=== PATIENT | female | born 1965 | race Caucasian/White ===

== ENCOUNTER 2020-05-02 09:43 | Inpatient (IN) | payer BC ==
[2020-05-02] MEDS ORDERED: Acetaminophen 650 MG Supp RECTAL PRN (12:31)
[2020-05-02] MEDS ORDERED: traZODone 50 MG Tab PO PRN (12:33)
--- NOTE | 2020-05-02 13:57 | CR ---
CHEST: 2 view CLINICAL HISTORY:Ascites COMPARISON:None FINDINGS: The heart size, pulmonary vascularity and hilar structures are normal. No infiltrate effusion or pneumothorax is seen. IMPRESSION: No acute cardiopulmonary process.
[2020-05-02] MEDS ORDERED: Potassium Chloride 20 MEQ, Lidocaine 1% 2 ML in Sodium Chloride 0.9% 100 ML IV SCH (14:00)
[2020-05-02] MEDS: Dextrose 5%-Lactated Ringers 1,000 ML IV SCH (14:01)
[2020-05-02] MEDS ORDERED: Potassium Phosphates 3 mMole/ML 5 ML SDV IV ONE (16:00)
[2020-05-02] MEDS: Pantoprazole 40 MG Vial IVPUSH SCH (16:24)
[2020-05-02] MEDS: Potassium Phos in 0.9 % NaCl 15 MMOL in Premix Bag 1 BAG IV SCH ×6 (16:26→23:06)
[2020-05-02] MEDS: Vancomycin 250 MG/5 ML ML Oral Solution PO SCH ×2 (17:38→23:06)
[2020-05-02] MEDS ORDERED: MVI, Adult with Vitamin K 10 ML, Thiamine 200 MG, Chromium/Copper/Mang/Selen/Zn 1 ML in... IV ONE ×4 (20:00)
[2020-05-03] MEDS: Potassium Phos in 0.9 % NaCl 15 MMOL in Premix Bag 1 BAG IV SCH ×2 (02:15)
[2020-05-03] MEDS: Dextrose 5%-Lactated Ringers 1,000 ML IV SCH (05:04)
[2020-05-03] MEDS: Vancomycin 250 MG/5 ML ML Oral Solution PO SCH ×4 (05:08→22:02)
[2020-05-03] MEDS ORDERED: Bupivacaine 0.5% 50 ML MDV ONE (06:40)
[2020-05-03] MEDS ORDERED: Lidocaine 1% with EPINEPHrine 1:100,000 50 ML MDV ONE (06:41)
[2020-05-03] MEDS ORDERED: Propofol 200 MG/20 ML SDV ONE (07:10)
[2020-05-03] MEDS ORDERED: Midazolam 1 MG/ML 2 ML SDV ONE (07:10)
[2020-05-03] MEDS ORDERED: fentaNYL 100 MCG/2 ML SDV ONE (07:10)
[2020-05-03] MEDS: DULoxetine 30 MG Cap PO SCH (09:46)
[2020-05-03] MEDS: Anastrozole 1 MG Tab PO SCH (09:46)
[2020-05-03] MEDS: 1: AA 5%/Calcium/D15W/Lytes 1,000 ML with MVI, Adult with Vitamin K 10 ML, Chromium/Copp IV SCH ×6 (11:01→22:02)
[2020-05-03] MEDS: Acetaminophen 325 MG Tab PO PRN ×2 (12:15→19:31)
[2020-05-03] MEDS: Amylase/Lipase/Protease 12,000 Unit Cap.CR PO SCH ×2 (13:40→17:41)
--- NOTE | 2020-05-03 13:44 | PN ---
DATE OF SERVICE: 05/03/2020 SUBJECTIVE: Nataliia did test positive for C diff. She was started on vancomycin 200 mg q.i.d. scheduled. Vital signs have been stable. Her potassium and phosphorus have been replaced. Oral intake was 1200 before she was n.p.o. and urine output 1200. She had 2 bowel movements. REVIEW OF SYSTEMS: Remainder of review of systems negative for any pertinent positives and negatives. OBJECTIVE: GENERAL: Nataliia is a pleasant 54-year-old female. She is alert and orientated. Color pale. VITAL SIGNS: TPR at 0800; 97.7, 71, and 14. Blood pressure is 105/66. HEENT: Negative. NECK: Supple. HEART: Regular rate and rhythm. LUNGS: Clear. ABDOMEN: Remains to have generalized tenderness. EXTREMITIES: Without peripheral edema. ASSESSMENTS: 1. Clostridium difficile. 2. Severe hepatic steatosis. 3. Tmzufgyz-qv-voporz colitis. 4. Moderate ascites. PLAN: Orders to be written post surgical procedure. Melania Jones PA-C /[id number]
--- NOTE | 2020-05-03 15:11 | HP ---
SUBJECTIVE: Nataliia reports generalized abdominal pain with 15 to 20 explosive, occasionally incontinent, water stools with some digested food. Diarrhea is associated with nausea, dry heaves and a 20-pound weight loss. She states this all started in December. She has lost 20 pounds. She did cut out bread, alcohol, and did some food elimination trials, nothing was helping. She also has been prescribed probiotics, Questran and fiber wafers. She went to her provider in February, had negative stool samples, tested negative for celiac disease, and had a colonoscopy. She states that she comes to the bariatric surgery department thinking that maybe all this has to do with her bariatric surgery. She states she is feeling weak, has no energy, and she has only been able to have a couple sips of water or a couple of spoons of soup, and she will have lot of diarrhea associated with cramping. Lap Kinjal-en-Y was on 06/29/2010, consult weight 231, preop weight 233, and weight today is 166. Date of revision of Kinjal-en-Y, 11/04/2016, consult weight 227.8, and weight today is 166. REVIEW OF SYSTEMS: CONSTITUTIONAL: Denies any fever, chills, or night sweats. SKIN: No rashes. HEENT: No headaches, blurred vision, or sore throat. CARDIOVASCULAR: No chest pain or palpitation. RESPIRATORY: No cough or shortness of breath. ENDOCRINE: Negative for any skin or hair changes, heat or cold intolerance. Denies reactive hypoglycemia. GI: As above. : No UTI signs and symptoms. MUSCULOSKELETAL: No joint pain or swelling. NEUROLOGIC: No history of focal neurological changes, spells or memory changes. PSYCHIATRIC: PHQ is 12. States that she has been sick for so long that she is feeling somewhat depressed. Remainder of review of systems negative for any pertinent positives or negatives. SOCIAL HISTORY: . Employed at [employer]. Two children. DIET: Step-4, protein. We will try an Unjury protein shake daily plus some other protein foods. Fluids at least 4 to 5 cups a day. Multivitamin capsule one per day and B12 shot monthly. Not taking any other vitamins. CURRENT MEDICATIONS: Cymbalta 60 mg daily, vitamin D one tablet daily, multivitamin one tablet daily, Synthroid 225 mcg daily one time, trazodone 50 mg at bedtime, Arimidex 1 mg once a day, and Valtrex 500 mg as needed. ALLERGIES: TO GOLD, NICKEL. NO KNOWN MEDICAL ALLERGIES. PAST MEDICAL HISTORY: SP Kinjal-en-Y gastric bypass surgery, diabetes type 2, essential hypertension, hypothyroidism, and inflammatory breast cancer. FAMILY HISTORY: Noncontributory. OBJECTIVE: GENERAL: Nataliia Burgess is a pleasant 54-year-old female who appears weak and pale. Alert and orientated. VITAL SIGNS: Blood pressure 108/66, pulse 66, and weight is 166 pounds. HEENT: Pupils equal, round, and reactive to light and accommodation. Oral mucosa pink and moist. SKIN: Warm and dry. RESPIRATORY: Lungs are clear in all 4 capellan. ABDOMEN: Generalized tenderness with increasing tenderness in the upper abdominal area. EXTREMITIES: Without edema. SKIN: Without rash. NEURO: Cranial nerves 2 through 12 intact. MUSCULOSKELETAL: Deep tendon reflexes are 2+ and equal. PSYCHIATRIC: Mood and affect appropriate. Orientated x3. Memory intact. ASSESSMENT: 1. Severe hepatic steatosis. 2. Pwrcrpmu-xw-cztlra colitis. 3. Moderate ascites. PLAN: 1. Admit to [facility] as inpatient. 2. Diet, step-4 gastric bypass diet. 3. Activity, up ad debi. 4. Vital signs every 6 hours. 5. IV hydration. 6. Give lactated Ringer's with MultiVites 1 L now and D5 LR at 150 mL/hour. 7. Labs; check TSH, CBC, CMP, stools for C diff; chest x-ray, PA and lateral; COVID testing. 8. Tylenol 650 mg every 4 hours p.r.n. pain or fever. 9. SCDs. 10.Dietary consult. 11.Albumin 50 g IV one time today. 12.Duloxetine 60 mg one tablet daily. 13.Synthroid 225 mcg p.o. daily. 14.Trazodone 50 mg p.o. at bedtime p.r.n. sleep. 15.KCl 60 mEq IV today. 16.Arimidex 1 mg p.o. once daily. 17.Protonix 40 mg IV every 24 hours scheduled. 18.Schedule and have consent signed for insertion of central line on 05/03/2020, at 07:15; Alan Sifuentes MD. IV local sedation, n.p.o. after midnight. 19.We will evaluate p.r.n. or in a.m. 20.Length of stay, five nights and six days, pending condition. Melania Jones PA-C /[id number]
[2020-05-03] MEDS ORDERED: Fat Emulsion 100 ML IV ONE (16:00)
[2020-05-03] MEDS: Pantoprazole 40 MG Vial IVPUSH SCH (16:24)
[2020-05-04] MEDS: Vancomycin 250 MG/5 ML ML Oral Solution PO SCH ×4 (05:21→21:12)
[2020-05-04] MEDS ORDERED: Central Total Parenteral Nutrition Bag SCH (07:30)
[2020-05-04] MEDS: Amylase/Lipase/Protease 12,000 Unit Cap.CR PO SCH ×3 (07:59→18:28)
[2020-05-04] MEDS: Anastrozole 1 MG Tab PO SCH (08:00)
[2020-05-04] MEDS: DULoxetine 30 MG Cap PO SCH (08:00)
[2020-05-04] MEDS: 1: AA 5%/Calcium/D15W/Lytes 1,000 ML with MVI, Adult with Vitamin K 10 ML, Chromium/Copp IV SCH ×6 (09:44→21:13)
--- NOTE | 2020-05-04 10:08 | PN ---
DATE OF SERVICE: 05/04/2020 SUBJECTIVE: Nataliia continues to have bowel movements. She has had 5 in the past 24 hours. Oral intake was 520, urine output was 1350. States she feels a little bit better this morning. Denies any abdominal pain and has been afebrile. REVIEW OF SYSTEMS: HEENT: No headache. NECK: Negative. HEART: No chest pain, shortness of breath. LUNGS: No cough. ABDOMEN: As above. Denies pain. Continues to have frequent bowel movements. She is taking vancomycin for C. diff. EXTREMITIES: Negative. NEUROLOGIC: Intact. PSYCHIATRIC: Mood and affect appropriate. Remainder of review of systems negative for any pertinent positives and negatives. OBJECTIVE: GENERAL: Nataliia Burgess is a pleasant 54-year-old female. VITAL SIGNS: TPR at 0709; 98.5, 61, 16. Blood pressure 108/46. HEENT: Negative. NECK: Supple. HEART: Regular rate and rhythm. LUNGS: Clear. ABDOMEN: Soft, nontender. EXTREMITIES: Without peripheral edema. NEUROLOGIC: Negative. PSYCHIATRIC: Mood and affect appropriate. ASSESSMENT: 1. Placement of Shepherd catheter right subclavian vein for inadequate central venous access. Date: 05/03/2020. Surgeon: Alan Sifuentes MD. 2. Clostridium difficile. 3. Severe hepatic steatosis. 4. Klilomls-kt-baiflu colitis. 5. Moderate ascites. 6. Malnutrition requiring TPN therapy. 7. Status post Kinjal-en-Y gastric bypass surgery. 8. Unspecified surgical malabsorption. 9. Vitamin B deficiency. PLAN: 1. Continue same TPN rate and content. 2. Check CBC, CMP, mag, and phos in a.m. 3. Have Dietary see patient daily for education regarding bariatric diet. 4. We will evaluate p.r.n. or in a.m. Melania Jones PA-C /[id number]
--- NOTE | 2020-05-04 11:44 | PN ---
DATE OF SERVICE: 05/03/2020 The patient has been afebrile with stable vital signs. She did have a positive Clostridium difficile assay yesterday and has been started on oral vancomycin. We will see if that helps with regard to diarrhea and move up the colonoscopy at this point. A Shepherd catheter was placed and we will begin TPN and we will add some Creon to augment GI tract absorption. In addition to the TPN, give her some albumin over the next 4 days. We will see how things go clinically. The last thing that might possibly need to be required would be revision of the gastric bypass, but I suspect with Creon, we may be able to avoid that. Alan Sifuentes MD /[id number]
[2020-05-04] MEDS ORDERED: Ondansetron 4 MG Tab.DIS PO PRN (12:12)
[2020-05-04] MEDS: Fat Emulsion 100 ML IV SCH (16:15)
[2020-05-04] MEDS: Pantoprazole 40 MG Tab.CR PO SCH (16:22)
[2020-05-05] MEDS: Vancomycin 250 MG/5 ML ML Oral Solution PO SCH ×4 (06:08→21:40)
[2020-05-05] MEDS: Amylase/Lipase/Protease 12,000 Unit Cap.CR PO SCH ×3 (07:32→17:49)
[2020-05-05] MEDS: Pantoprazole 40 MG Tab.CR PO SCH (07:32)
[2020-05-05] MEDS ORDERED: Central Total Parenteral Nutrition Bag SCH (08:30)
[2020-05-05] MEDS: 1: AA 5%/Calcium/D15W/Lytes 1,000 ML with MVI, Adult with Vitamin K 10 ML, Chromium/Copp IV SCH ×3 (10:15)
[2020-05-05] MEDS: Anastrozole 1 MG Tab PO SCH (10:20)
[2020-05-05] MEDS: DULoxetine 30 MG Cap PO SCH (10:20)
--- NOTE | 2020-05-05 14:15 | PN ---
DATE OF SERVICE: 05/05/2020 SUBJECTIVE: Nataliia states this morning is the best that she has felt for a long time. She had 10 loose stools yesterday. Denies any abdominal pain. Has been afebrile. Oral intake 850. Urine output 3500. REVIEW OF SYSTEMS: Remainder of review of systems negative for any pertinent positives and negatives. OBJECTIVE: GENERAL: Nataliia Burgess is a pleasant, 54-year-old female. She is alert and orientated. HEENT: Negative. NECK: Supple. HEART: Regular rate and rhythm. LUNGS: Clear. ABDOMEN: Soft, nontender. EXTREMITIES: Without peripheral edema. NEUROLOGIC: Intact. PSYCHIATRIC: Mood and affect appropriate. ASSESSMENT: 1. Placement of Shepherd catheter, right subclavian vein, for inadequate central vein access. Date 05/03/2020. Surgeon: Alan Sifuentes MD. 2. Clostridium difficile. 3. Severe hepatic steatosis. 4. Uyfrsyzu-eq-gwwejf colitis. 5. Moderate ascites. 6. Malnutrition requiring TPN therapy. 7. Status post Kinjal-en-Y gastric bypass surgery. 8. Unspecified surgical malabsorption. 9. Vitamin B deficiency. PLAN: 1. Decrease TPN to 80 mL/hour. 2. Check CBC, CMP, mag, phos in a.m. 3. Continue to encourage oral intake and will evaluate p.r.n. or in a.m. Melania Jones PA-C /[id number]
[2020-05-05] MEDS: Fat Emulsion 100 ML IV SCH (15:44)
[2020-05-05] MEDS ORDERED: 1: AA 5%/Calcium/D15W/Lytes 1,000 ML with MVI, Adult with Vitamin K 10 ML, Chromium/Copp IV SCH ×3 (22:45)
[2020-05-06] MEDS: Dextrose 5%-Lactated Ringers 1,000 ML IV SCH (04:45)
[2020-05-06] MEDS: Vancomycin 250 MG/5 ML ML Oral Solution PO SCH ×4 (05:17→21:32)
[2020-05-06] MEDS: Pantoprazole 40 MG Tab.CR PO SCH (08:06)
[2020-05-06] MEDS: Amylase/Lipase/Protease 12,000 Unit Cap.CR PO SCH ×3 (08:06→16:31)
[2020-05-06] MEDS: Anastrozole 1 MG Tab PO SCH (09:28)
[2020-05-06] MEDS: DULoxetine 30 MG Cap PO SCH (09:28)
[2020-05-06] MEDS: 1: AA 5%/Calcium/D15W/Lytes 1,000 ML with MVI, Adult with Vitamin K 10 ML, Chromium/Copp IV SCH ×6 (10:42→23:22)
[2020-05-06] MEDS: Acetaminophen 325 MG Tab PO PRN (12:53)
[2020-05-06] MEDS: Fat Emulsion 100 ML IV SCH (16:28)
[2020-05-07] MEDS: Vancomycin 250 MG/5 ML ML Oral Solution PO SCH ×4 (05:48→21:59)
[2020-05-07] MEDS: Pantoprazole 40 MG Tab.CR PO SCH (07:25)
[2020-05-07] MEDS: Amylase/Lipase/Protease 12,000 Unit Cap.CR PO SCH ×3 (07:25→16:56)
[2020-05-07] MEDS: DULoxetine 30 MG Cap PO SCH (08:03)
[2020-05-07] MEDS: Anastrozole 1 MG Tab PO SCH (08:03)
[2020-05-07] MEDS: 1: AA 5%/Calcium/D15W/Lytes 1,000 ML with MVI, Adult with Vitamin K 10 ML, Chromium/Copp IV SCH ×6 (11:27→23:49)
[2020-05-07] MEDS: Fat Emulsion 100 ML IV SCH (16:55)
[2020-05-08] MEDS: Dextrose 5%-Lactated Ringers 1,000 ML IV SCH (04:32)
[2020-05-08] MEDS: Vancomycin 250 MG/5 ML ML Oral Solution PO SCH (05:52)
[2020-05-08 07:13] VITALS: BP 108/58; PULSE 58
[2020-05-08] MEDS: Amylase/Lipase/Protease 12,000 Unit Cap.CR PO SCH (07:14)
[2020-05-08] MEDS: Pantoprazole 40 MG Tab.CR PO SCH (07:14)
[2020-05-08] MEDS ORDERED: Central Total Parenteral Nutrition Bag SCH (07:15)
--- NOTE | 2020-05-08 11:16 | DISCH ---
ADMISSION DIAGNOSES: 1. Severe hepatic steatosis. 2. Moderate to severe colitis. 3. Moderate ascites. 4. Diarrhea, 16 to 20 stools. 5. Status post Kinjal-en-Y gastric bypass surgery. 6. Unspecified surgical malabsorption. 7. B12 deficiency. 8. Malnutrition. 9. Hypothyroidism. 10.Depression. 11.Diabetes, type 2. 12.Essential hypertension. 13.History of inflammatory breast cancer. DISCHARGE DIAGNOSES: 1. Clostridium difficile. 2. Placement of Shepherd catheter, date 05/03/2020. Surgeon: Alan Sifuentes MD. 3. TPN therapy. 4. Severe hepatic steatosis. 5. Moderate to severe colitis. 6. Moderate ascites and malnutrition requiring TPN. 7. Status post Kinjal-en-Y gastric bypass surgery. HISTORY: Nataliia Burgess is a pleasant 54-year-old female, who presented to [facility] with a history of 15 to 20 stools per day since December 2019. After evaluation of a CT scan and lab work, she was admitted to [facility] on 05/02/2020 for further evaluation, where a stool sample for C difficile was repeated, was found to be negative. She was started on IV vancomycin and given IV albumin. A Shepherd catheter was placed on 05/02/2020, and she was started on TPN therapy. Potassium was replaced for a potassium of 2.7. Nataliia was on TPN therapy from 05/02/2020 until 05/08/2020, day of discharge. Her vital signs remained stable. Her oral intake on a regular diet increased to 1460 the day before discharge. Bowel movements decreased to 2 per day the last 24 hours she was in the hospital. Nataliia was able to be discharged to home on 05/08/2020. REVIEW OF SYSTEMS: CONSTITUTIONAL: Denies any fever, night-sweats, or fatigue. NECK: Negative. CHEST: No chest pain, shortness of breath, fast or irregular heartbeat. LUNGS: No cough. ABDOMEN: As above. Denies any pain. GENITOURINARY: No UTI signs or symptoms. EXTREMITIES: No joint pain or swelling. SKIN: No rash. NEUROLOGIC: No headaches, dizziness, loss of coordination. PSYCHIATRIC: No insomnia, depression, anxiety. Remainder of review of systems negative for any pertinent positives and negatives. OBJECTIVE: GENERAL: Nataliia Burgess is a pleasant 54-year-old female. Height is 5 feet 8.9 inches. Weight is 165 pounds. VITAL SIGNS: TPR at 0712, 97.5, 58, 18, blood pressure 108/58. HEENT: Negative. NECK: Supple. HEART: Regular rate and rhythm. LUNGS: Clear. ABDOMEN: Remains to have some mid epigastric abdominal pain, minimal, otherwise soft and nontender. EXTREMITIES: Without peripheral edema. NEUROLOGIC: Cranial nerves 2 to 12 intact. PSYCHIATRIC: Mood and affect appropriate. DISPOSITION: Discharged to home. CONDITION: Stable and improving. FOLLOWUP APPOINTMENT: With Melania Jones PA-C, on 05/15/2020 at 10:00 a.m. Shepherd catheter will be flushed at that time and dressing changed. NEW PRESCRIPTIONS: 1. Protonix 40 mg p.o. before breakfast, #35 refills. 2. Vancomycin 250 mg oral q.6 hours, #40. To resume home medications: Arimidex 1 mg oral daily; calcium citrate 1 tablet oral twice daily; vitamin D3, 1000 international units as directed; vitamin B12, 1000 mcg IM every 21 days; vitamin B12, 1000 mcg 1 sublingual daily; duloxetine 60 mg oral daily; levothyroxine 225 mcg daily; multivitamin 1 tablet daily; vitamin B complex 1 tablet at bedtime; trazodone 50 mg at h.s. p.r.n. insomnia; Valtrex 500 mg oral twice daily. DIET: Step-4 gastric bypass diet. Drink 8 to 10 glasses of water a day. ACTIVITY: As tolerated. SHOWER/BATHING: May shower. Notify provider if any fever, pain, nausea, vomiting, or increase in diarrhea. Shepherd catheter will be left in for approximately 3 weeks.
--- NOTE | 2020-05-10 14:33 | PN ---
DATE OF SERVICE: 05/06/2020 The patient has been afebrile with stable vital signs. Oral intake was fairly good with around 1200 mL recorded. We will back down the TPN rate to 80 mL an hour and, otherwise, continue to augment oral intake. We will continue treating the Clostridium difficile. Her chloride is somewhat high, and we will adjust the electrolytes and TPN accordingly. Overall, she appears to be feeling much better. We will tentatively plan for discharge home on Friday. Alan Sifuentes MD /[id number]
--- NOTE | 2020-05-10 14:39 | PN ---
DATE OF SERVICE: 05/07/2020 The patient has been clinically stable. Oral intake is improving quite a bit, around 1900 mL in yesterday. The plan will be to discharge home tomorrow. We will continue the TPN going through today for management of her nutritional status and turn it down to 40 mL an hour at 4 a.m. on Friday, and then discontinue the TPN at the time of discharge, probably tomorrow morning. Alan Sifuentes MD /[id number]
--- NOTE | 2020-05-14 14:06 | OR ---
DATE OF PROCEDURE: 05/03/2020 SURGEON: Alan Sifuentes MD PREOPERATIVE DIAGNOSIS: Indication for central venous access. POSTOPERATIVE DIAGNOSIS: Indication for central venous access. OPERATIVE PROCEDURE: Insertion of double-lumen Shepherd catheter via right subclavian vein approach ([id number]). ANESTHESIA: Local plus IV sedation. INDICATION FOR PROCEDURE: This is a 54-year-old female presenting with a quite severe malnutrition. As part of the workup, she did undergo a Shepherd catheter placement to allow TPN administration potentially in a relatively snf if necessary. Potential risks of the procedure including bleeding, pneumohemothorax, and such were reviewed and the patient wishes to proceed. DETAILS OF PROCEDURE: The patient was taken to the operating room and placed in a supine position. After IV sedation was administered, the upper chest and neck areas were prepped and draped. The right subclavian area was then anesthetized with 1% lidocaine mixed with Marcaine and the right subclavian vein cannulated. The guidewire passed and manipulated through the superior vena cava. Some additional local was then injected inferior to that. In between the 2 incisions, a smaller incision was then made 4 fingerbreadths below the original puncture site in the chest wall and the Shepherd catheter was then tunneled between the 2 incisions and then cut such that the tip would lie in the area of the superior vena cava and right atrial junction. Over this Peel-Away catheter, the Shepherd catheter was then deployed without difficulty. The incision at the original puncture site was closed with some 4-0 Vicryl subcuticular stitch and Steri-Strips, and the catheter exit site with the cuff just underneath the skin was approximated with a 3-0 nylon stitch. Good in and outflow was noted through the ports both of which were flushed with heparinized saline. Dressing applied. The patient was taken to the recovery room in satisfactory condition. There were no evident complications. Alan Sifuentes MD /[id number]
== END 2020-05-08 09:09 | disposition home or self-care (01) | DRG 950 ==
LOC: JP.ED 09:43 → JP.ICU 11:06 → JP.MS 05-03 16:52
PROVIDERS: ADMIT Surgery; ATTEND Surgery
PROC: 02H633Z Insertion of Infusion Device into Right Atrium, Percutaneous Approach (ICD-10-PCS; principal; 2020-05-03)
DX: K76.0 Fatty (change of) liver, not elsewhere classified (principal); A04.72 Enterocolitis due to Clostridium difficile, not specified as recurrent; K52.9 Noninfective gastroenteritis and colitis, unspecified; K91.2 Postsurgical malabsorption, not elsewhere classified; D32.9 Benign neoplasm of meninges, unspecified; I10 Essential (primary) hypertension; E46 Unspecified protein-calorie malnutrition; F32.9 Major depressive disorder, single episode, unspecified; Z20.828 Contact with and (suspected) exposure to other viral communicable diseases; E53.8 Deficiency of other specified B group vitamins; R18.8 Other ascites; Z98.84 Bariatric surgery status; Z79.899 Other long term (current) drug therapy; Z68.24 Body mass index [BMI] 24.0-24.9, adult
CPT/HCPCS: 36415; 71046; 71046-26; 80053; 83735; 84100; 84443; 85025; 85027; 87493; A9270-GY; C9113; J1642; J2001; J2250; J2704; J3010; J3411; J3480; J3490; J7050; J7120; J7121; P9047; U0002